=== PATIENT | male | born 1940 | race Caucasian/White ===

== ENCOUNTER 2017-06-16 07:25 | Outpatient (CLI) | payer MEDICARE ==
--- NOTE | 2017-06-16 16:46 | NM ---
WHOLE BODY PLANAR RADIONUCLIDE WBC SCAN: Date: 06/16/17 HISTORY: Patient had L2-L3 laminectomy in [place] in August 2016 and developed osteomyelitis and was given 1 2 weeks of IV antibiotics. Exam is requested to evaluate for infection in the spine or other acute o steomyelitis at other site. RADIOPHARMACEUTICAL: 2.3 mCi technetium-99m HMPAO WBCs injected intravenously and imaged after 2 hours. FINDINGS: There is physiologic activity in the liver, spleen, and GI tract. No abnormal areas of tracer locali zation are seen. IMPRESSION: Normal exam. POS: [facility]
== END 2017-06-16 07:26 | disposition home or self-care (01) ==
LOC: NM 07:25
PROVIDERS: ATTEND Internal Medicine Infectious Disease
DX: M86.18 Other acute osteomyelitis, other site (principal); Z98.890 Other specified postprocedural states
CPT/HCPCS: 78806; A4641; A9521

== ENCOUNTER 2017-06-17 07:54 | Outpatient (CLI) | payer MEDICARE ==
--- NOTE | 2017-06-17 10:22 | MRI ---
LUMBAR SPINE MRI WITH AND WITHOUT CONTRAST: COMPARISON: Reference is made to prior MRI of 02/27/17 as well as white cell scan 06/16/17. CLINICAL HISTORY: Other acute osteomyelitis, other site, back. Abnormal prior MRI, followup. FINDINGS: Redemonstration of marked signal abnormality of the L2 and 3 vertebral segments with associated compr ession deformities and focal kyphosis. There remains a mild degree of interspersed fluid signal with in the irregular disk space as well as associated marrow edema predominantly in an obliquely oriented linear configuration of the L2 and L3 vertebral segments. There is surrounding paravertebral soft t issue edema/enhancement again seen as well as a mild degree of enhancement at the vertebral canal of this level. These findings may be reactive given the abnormal morphology and alignment of the spine. There is no obvious progression of the signal abnormalities. There is a moderate degree of central canal stenosis as a result of the focal kyphosis at the L2-3 level. Prominent bilateral facet degen erative change is present. There is also marrow edema of the posterior elements of L2 and L3, grossl y stable. The remaining lumbar spine levels are grossly stable. Conus medullaris terminates at the L1 level. There is no pathologic enhancement seen along the nerve roots of cauda equina. IMPRESSION: Grossly stable MRI without a significant degree of interval detrimental change of signal alteration o f the L2 and 3 segments. There remains mild interspersed fluid signal within the irregular disk spac e related to the L2 and L3 fracture deformities with associated kyphosis. Surrounding paravertebral soft tissue edema/enhancement as well as a mild degree of enhancement of the vertebral canal is again seen. The primary considerations, particularly in light of absence of typical evolutionary changes for infection, and an intervening negative white cell scan, would indicate reactive marrow edema and disk space fluid related to prior trauma. Alternatively, this could relate to chronic sequelae from an infectious process given the clinical history. Absence of activity on the recent white cell scan indicates absence of an active pyogenic process. Recommend clinical correlation in this regard. As necessary, continued imaging surveillance may be performed. POS: [facility]
[2017-06-17] MEDS ORDERED: Gadobenate Dimeglumine 529 MG/1 ML (20ML VIAL) ONE (17:07)
== END 2017-06-17 07:55 | disposition home or self-care (01) ==
LOC: MRI 07:54
DX: M86.18 Other acute osteomyelitis, other site (principal)
CPT/HCPCS: 72158; 80048; 85025; 85610; 85730; 93005; 93010; A9579

== ENCOUNTER 2017-06-17 09:19 | Outpatient (CLI) | payer MEDICARE ==
--- NOTE | 2017-06-18 07:56 | EKG ---
Test Reason : Blood Pressure : / mmHG Vent. Rate : 055 BPM Atrial Rate : 055 BPM P-R Int : 212 ms QRS Dur : 166 ms QT Int : 462 ms P-R-T Axes : 015 097 017 degrees QTc Int : 441 ms Sinus bradycardia with 1st degree A-V block Right bundle branch block Abnormal ECG When compared with ECG of 08-DEC-2016 16:55, Premature ventricular complexes are no longer Present AR interval has increased Septal infarct is now Present Nonspecific T wave abnormality no longer evident in Lateral leads Confirmed by DARCIE KIRBY, SFermin ([id number]) on 06/18/2017 7:56:36 AM Referred By: ANNABEL Confirmed By:DR. Constance SPRAGUE MD
== END 2017-06-17 09:20 | disposition home or self-care (01) ==
LOC: LABBT 09:19
PROVIDERS: ATTEND Neurological Surgery
DX: Z01.812 Encounter for preprocedural laboratory examination (principal); M47.26 Other spondylosis with radiculopathy, lumbar region; M46.26 Osteomyelitis of vertebra, lumbar region; M46.46 Discitis, unspecified, lumbar region
CPT/HCPCS: 93005; 93010

== ENCOUNTER 2017-06-17 10:00 | Inpatient (IN) | payer MEDICARE ==
--- NOTE | 2017-06-17 12:32 | HP ---
HISTORY OF PRESENT ILLNESS: Mr. Stark is a 76-year-old male who presents with pain in the right L 3 dermatome. He has had this pain since that after his surgery 08/2016 in [place], which was an L4-L 5 laminectomy. Mr. Stark had 2 lumbar spine infection washouts after his surgery and he has been on antibiotic for Enterococcus for about 4 months for postoperative infection with osteomyelitis of t he spine. His surgeon in [place] suggested he could do another operation in a few months; however, t he pain is constant in the right leg and the patient is here for a second opinion on whether he shoul d wait or not. He denies any bowel or bladder incontinence and does not have any pain past his knee on the right. He has had good strength in the lower extremities and his incision looks clean, dry, a nd healing well. He has had a previous lumbar spine surgery at L2-L3 in 2014 in [place]. IMAGES: X-ray upright lateral on CD. Patient has MRI at [facility]. REVIEW OF SYSTEMS: Twelve point review of systems was completed and is otherwise negative unless sta sunita in the above HPI. PAST MEDICAL HISTORY: Irregular heartbeat, sleep apnea, arthritis, spinal stenosis, macular degenera tion. PAST SURGICAL HISTORY: 1. L4-L5 laminectomy in 2016. 2. L2-L3 laminectomy in 2014. 3. Wound wash out x2, lumbar laminectomy in 2016. HOSPITALIZATIONS: Hospitalizations for lumbar infection in 2017. FAMILY HISTORY: Father is , diagnosed with cancer. Mother is , diagnosed with heart disease. Siblings are alive. SOCIAL HISTORY: The patient is nonsmoker, retired banker. He has 2 children. He is . MEDICATIONS: Protonix, amlodipine, Advil, metoprolol, prednisone, hydrocodone, baby aspirin, lisinop ril, CoQ 10, Pressor Vision, baclofen 10 mg tablet 1 tablet with food orally 3 times a day. ALLERGIES: No known drug allergies. PHYSICAL EXAMINATION: HEENT: Normocephalic, atraumatic. Hearing intact. Moist mucous membranes. Trachea is midline. EYES: Pupils are equal and reactive to light. Extraocular muscles are intact. Sclerae is white, no nicteric. PSYCHIATRIC: Normal mood and affect. CARDIOVASCULAR/PULMONARY: No cyanosis or clubbing noted. Intact pedal pulses bilaterally. MUSCULOSKELETAL: Lower extremity, 5/5 strength in bilateral iliopsoas, quadriceps, hamstrings, right tibialis anterior, extensor hallucis longus. Sensory deficit in the L3 dermatome on the right. Ten dianna to palpation in the midline lumbar spine. RESPIRATORY: Even respirations, good effort, all lung hanson sound clear with no wheezing or crackle s. NEUROLOGIC: Cranial nerves II-XII are grossly intact. Speech is fluent. He answers my questions ap propriately. The patient has antalgic gait and station. ASSESSMENT: 1. Lumbar radiculopathy, osteomyelitis of the vertebrae lumbar region. 2. Spondylosis with radiculopathy, lumbar region. IMAGING: MRI shows kyphosis at L2-L3, collapse of right L2-L3 foramen, L2 root between L3 superior e ndplate an L2 pedicle. Canal narrowing enhancement on L2 disk. Recent sed rate is 2. PLAN: Dr. Logan discussed surgery with the patient. Our plan is to decompress the L2 foramen an d canal instrumentation to stabilize. Likely instrumentation will include L4 with L3-4 interbody, le ss likely it might include L2-L3 interbody but the endplate of L3 is worn away enough that it may not be possible. We will take cultures in surgery. Informed consent was given in the indications, risk s, benefits, alternatives, and expected results from surgery. The risks discussed included, but were not limited to bleeding, infection, CSF leak, nerve damage, weakness, incontinence, cauda equina inj ury, arachnoiditis, paralysis, ventilator dependence, wheelchair dependence, loss of vision, hardware misplacement, cardiopulmonary complications of anesthesia or . Long-term complications discuss ed included, but were not limited to degeneration of surrounding disks and future surgery. He unders tands the risk and is willing to proceed.
[2017-06-17 13:37] LABS: PTT 32.2 SEC (22.9-36.1)
[2017-06-17 14:04] LABS: Anion Gap 9 mmol/L (10-20); BUN (Urea Nitrogen) 15 mg/dL (8.4-25.7); Calc. Creatinine Clearance 0 mL/min (70-130); Calcium 9.3 mg/dL (7.8-10.44); Carbon Dioxide 32 mmol/L (23-31); Chloride 103 mmol/L (98-107); Estimated GFR-MDRD Greater than 90
[2017-06-17 14:05] LABS: #Eosinphils 0.1 thou/uL (0.0-0.7); #Lymphocytes 1.6 thou/uL (1.20-3.40); #Monocytes 0.5 thou/uL (0.11-0.59); %Basophils 0.9 % (0.0-1.0); %Eosinophils 3.3 % (0.0-10.0); %Lymphocytes 37.4 % (21.0-51.0); Mean Platelet Volume 9.5 fL (7.4-10.4); Red Blood Cell (RBC) Count 4.57 mill/uL (4.70-6.10); White Blood Cell (WBC) Count 4.4 thou/uL (4.8-10.8)
[2017-06-17 17:06] VITALS: BMI 25.1
[2017-06-22] MEDS ORDERED: CEFAZOLIN/Water 2 GM/20 ML SYRINGE ONE (06:00)
[2017-06-22] MEDS ORDERED: Fentanyl 250 MCG/5 ML VIAL ONE (06:12)
[2017-06-22] MEDS ORDERED: Midazolam HCl 2 mg/2 ml Vial ONE (06:12)
[2017-06-22] MEDS ORDERED: Bupivacaine/Epinephrine 0.25% 30 ML VIAL ONE (06:17)
[2017-06-22] MEDS ORDERED: Bupivacaine PF 0.5% 30 ML VIAL ONE (06:17)
[2017-06-22] MEDS ORDERED: Sodium Chloride 0.9% 20 ML ONE (06:17)
[2017-06-22] MEDS ORDERED: Thrombin 5000 UNITS/5 ML VIAL ONE ×2 (06:17)
[2017-06-22] MEDS ORDERED: Propofol 200 MG/20 ML VIAL ONE (07:08)
[2017-06-22] MEDS ORDERED: Dexamethasone 20 MG/5 ML VIAL ONE (07:08)
[2017-06-22] MEDS ORDERED: ePHEDrine/0.9% NaCl/PF SYRINGE 50 mg/10 ml ONE ×2 (07:08→12:00)
[2017-06-22] MEDS ORDERED: Lidocaine 1% PF 5 ML VIAL ONE (07:08)
[2017-06-22] MEDS ORDERED: Ondansetron HCl/PF 4 MG/2 ML Vial ONE (07:08)
[2017-06-22] MEDS ORDERED: Glycopyrrolate 0.2 MG/ML 5 ML SYRINGE ONE (07:08)
[2017-06-22] MEDS ORDERED: Fentanyl 100 MCG/2 ML VIAL ONE ×3 (09:59→15:06)
[2017-06-22] MEDS ORDERED: Albumin 5% 0 ML ONE (11:47)
[2017-06-22] MEDS ORDERED: Albumin 5% 500 ML ONE (11:52)
[2017-06-22] MEDS ORDERED: HYDROmorphone 2 MG/ML VIAL SLOW IVP PRN (13:19)
[2017-06-22] MEDS ORDERED: Promethazine HCl 25 MG/ML VIAL SLOW IVP PRN (13:19)
[2017-06-22] MEDS ORDERED: Meperidine HCl/PF 25 MG/ML VIAL SLOW IVP PRN (13:19)
[2017-06-22] MEDS ORDERED: Morphine Sulfate 2 MG/ML SYRINGE SLOW IVP PRN (13:19)
[2017-06-22] MEDS ORDERED: tiZANidine HCl 4 MG TAB PO PRN (13:52)
[2017-06-22] MEDS ORDERED: Acetaminophen/Codeine 30-300mg Tablet PO PRN (13:52)
[2017-06-22] MEDS ORDERED: Ondansetron HCl/PF 4 MG/2 ML Vial IVP PRN (13:52)
[2017-06-22] MEDS ORDERED: CEFAZOLIN/Water 2 GM/20 ML SYRINGE SLOW IVP SCH (14:00)
--- NOTE | 2017-06-22 14:12 | OP ---
DATE OF PROCEDURE: 06/22/2017 SURGEON: Janae Logan M.D. PRESS TENDER INCENDIARY GRENADE: Gage Bright PA-C PREOPERATIVE INDICATION: Treat pain, prevent further neurological deterioration. PREOPERATIVE DIAGNOSES: Prior lumbar surgery, prior postoperative diskitis osteomyelitis, spinal def ormity at L2-3 with severe foraminal stenosis and L2 radiculopathy, lumbar stenosis. OPERATIVE PROCEDURES: Left decompressive laminectomy, wide foraminotomy L2-3 bilateral, posterolater al arthrodesis L2-L3, L3-L4, pedicle screw and jean claude instrumentation, L2, L3 and L4, transforaminal lum bar interbody arthrodesis L3-L4, multiple cultures, operative microscope. PREOPERATIVE MEDICATIONS: 2 grams IV. DRAIN TYPE: 10 Niuean Igor. OPERATIVE DICTATION: The patient was brought to the operating room. General endotracheal anesthesia was induced. The patient was positioned prone on the operating table with his chest and hips suppor sunita by the appropriate attachments for the Avtar frame. A lateral fluoro radiograph confirmed the previous incision would give us access to the L2-3 and 4 segments of the lumbar spine. The lumbar sk in was sterilely prepped and draped. We reopened his previous incision with a 10 blade knife. We co ntrolled bleeding with bipolar and monopolar cautery. We used monopolar cautery to dissect through t he subcutaneous tissue to the thoracodorsal fascia. We incised the fascia in the midline and reflect ed the paraspinal muscles and postoperative scar tissue off the spinous process and lamina of L2, L3, and L4. Self-retaining retractors were placed. A lateral fluoro radiograph confirmed the levels up on which we were operating. We carried our dissection over the facet joints at L2-L3 and L1-2 to yanet ntify the transverse processes of L2 and L3. In a similar fashion, we dissected the L3-4 facets to t he transverse processes of L4 bilaterally. We irrigated copiously with bacitracin irrigation. We us ed an Adson rongeur to remove the remainder of the spinous process of L2, L3, and superior portion of L4. This was bone we used for deem for autograft. It was cleaned of its soft tissue attachments, m orselized and added to demineralized bone matrix as our fusion substrate. The rest of the bone inclu ded lamina and pars interarticularis was thrown out due to previous infection. After the spinous pro cesses were removed, we identified the inferior margin of the remainder of the lamina of L3 and L2 an d using Kerrison rongeur to fashion a laminectomy. We widened our laminectomy defect by carefully di ssecting scar tissue off the lateral confines of the spinal canal. We widened our foraminotomy until we were even with the pedicles of L2, L3, and L4. We performed foraminotomies over the L2, L3 and L 4 nerve roots. The L2 nerve root especially on the left side was compressed between the pedicle of L 2 and the vertebral body of L3. We brought the operating microscope into the field. Under microscopic magnification using microsurgical techniques, we gently decompressed the L2 nerve r oot circumferentially on the right side. This was done by flattening the vertebral body with a high- speed drill and cheri bit. We drilled off the superior portion of the pedicle at L3 on the right s yanet as well, we generated adequate room around the L2 nerve root for a Florentino ball probe to pass thro ugh the foramen without impingement. In a similar fashion, we decompressed the left L3 and L2 nerve root. We freed scar tissue around the L3 nerve roots. We passed the Florentino ball probe through the l ateral recess and out over the L3 and L4 nerve roots and these were all well decompressed. The decom pression was secured, we turned our attention to arthrodesis. The operative microscope was taken out of field. We removed the facet joint at L3-L4 on the right si de and through the facetectomy corridor, we accessed the intervertebral space. We incised the disk s pace and removed disk contents using curettes and rongeurs. We prepared the endplates for grafting w ith curets and measured the height of the interspace to 12 mm with the bone rasp. A 12 mm PEEK graft was loaded with demineralized bone matrix and morselized autograft and advanced into the interspaces under radiographic guidance to the appropriate depth. We then turned our attention to pedicle screw instrumentation. Using bony anatomic landmarks, palpation of the medial portion of the pedicles, and a lateral fluoro radiograph as a guide, we chose entry points for L2, L3 and L4 pedicle screws. Because of the wearin g away of the L3 vertebral body, those pedicle screws found to be shorter. Therefore, we used fixati on to all the way at L4 and we performed a TLIF at the L3-4 interspace. We drilled our entry points and used the bone awl to project through the pedicles into the vertebral bodies. We tapped each traj ectory. We probed the trajectories and found them completely encased in bone. We placed 6.5 mm diam eter screws at L2, L3 and L4 bilaterally. A 360 degree image set was generated by the isocenter C-ar m confirming adequate position of all our pedicle screws. We irrigated copiously with bacitracin irr igation. We decorticated the transverse processes of L2, L3, and L4 bilaterally. We placed rods in the screw heads and tightened caps over the rods. We used a qkticu-tylkrtv-mdwyns mechanism to ensur e adequate tightness. Overall, the decorticated bone, we left demineralized bone matrix and morseliz ed autograft in the posterolateral recess as our fusion substrate. We controlled bleeding with bipol ar cautery. We tunneled a drain inferiorly through a separate stab incision. We applied the vancomy millie powder into the wound. We closed the wound in anatomic layers and applied a sterile dressing. T his was a clean case and no contamination.
[2017-06-22] MEDS ORDERED: Gabapentin 300 MG CAP PO SCH (14:15)
[2017-06-22] MEDS ORDERED: Morphine 4 MG/ML VIAL ONE ×2 (14:43→16:36)
[2017-06-22 15:31] LABS: Troponin I Less than 0.010 ng/mL (< 0.028)
[2017-06-22 15:42] LABS: Oxyhemoglobin 97.9 % (94.0-97.0); Sodium 141 mmol/L (135-148)
[2017-06-22 15:46] LABS: Mode OR ABG; Vent YES
[2017-06-22] MEDS: Propafenone HCl 150 MG TAB PO SCH ×2 (19:58→20:42)
[2017-06-22] MEDS: Sodium Chloride 0.9% 1,000 ML IV SCH (20:41)
[2017-06-22] MEDS: CEFAZOLIN/Water 2 GM/20 ML SYRINGE SLOW IVP SCH (20:42)
[2017-06-22] MEDS: Gabapentin 300 MG CAP PO SCH (20:44)
--- NOTE | 2017-06-22 21:40 | CON ---
DATE OF ADMISSION: 06/22/2017 DATE OF CONSULTATION: 06/22/2017 INDICATION FOR CONSULTATION: A 77-year-old patient with episodes of right bundle branch block, secon d degree heart block type 2 intermittently during surgery and also short run of atrial fibrillation a ccording to the anesthesiologist. We were asked to see him due to the abnormal EKG findings. HISTORY OF PRESENT ILLNESS: This is a very pleasant 77-year-old gentleman who underwent neurosurgery today with laminectomy. This is his third attempt of laminectomy. He has had some problems in the past starting back in 2014. He has had a laminectomy in August of this year also, he developed some type of infection earlier, this has been trying to clear this up, but he presented today to clean it out and have further evaluation and surgery. During the surgical procedure, he was noted prior to t he procedure to have a right bundle branch block, but during the procedure, he had episodes of second degree heart block type 2 just for few beats. He also had some nonspecific changes with his right b undle branch block, which could be just due to the basic right bundle branch block. He has had a his tory of right bundle branch block in the past and also has history of atrial fibrillation. He has be en on Eliquis for at least a couple of years. It sounds like this had been held for at least a week ago for the anticipated surgery for today. He denied any chest pain or shortness of breath. He rece ntly has been in a wheelchair due to the severe back pain and the issues associated with the previous laminectomy. His prior echocardiogram showed an ejection fraction of 55% with a moderate aortic addison ve regurgitation. The inferior wall shows some hypokinesis. He has had no other significant complai nts as far as we know. He has no history of coronary artery disease. PAST MEDICAL HISTORY: Significant for the laminectomy. He has had an Enterococcus infection. He lama s bilateral cataract surgery, left hand surgery. 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 He has had a prostatectomy, skin cancer. SOCIAL HISTORY: He is . He has children who are alive and well. He has no tobacco abuse. N o alcohol use. He is a retired banker. FAMILY HISTORY: Positive for coronary artery disease in his mother who from coronary artery dis ease or heart disease. ALLERGIES: None. MEDICATIONS AT HOME: Included Eliquis, amlodipine, Neurontin, [place], lisinopril, Toprol-XL, multivit amins, propafenone, vitamins and CoQ10. REVIEW OF SYSTEMS: A 12-point review of systems relatively unremarkable. He has been relatively asy mptomatic from a cardiac standpoint. He has been pretty much wheelchair bound. He denied any chest pain or shortness of breath. His 12-point review of systems, he denied any new HEENT complaints. He did have some cataract surgery recently and has been doing relatively well from that. He had no pul monary complaints such as asthma, emphysema or bronchitis. No significant urinary complaints, but he did have some GI complaints. He has had diarrhea for quite some time. He is uncertain if whether t his is associated with some of the antibiotics he has been taken, but apparently he has had evaluatio n and there has been no significant infectious process noted, but he was informed that he may need to undergo further stool evaluation. Otherwise, a 12-point review of systems is unremarkable except wh at was noted in the history of present illness. PHYSICAL EXAMINATION: GENERAL: Reveals a well-developed, well-nourished gentleman, who is in no acute distress at this [facility]. He is alert and oriented. VITAL SIGNS: His blood pressure is in the 120s systolically and diastolics in the 70s, heart rates i n the 50s to 60s, which shows a sinus rhythm with right bundle branch block. He is afebrile. HEENT: Shows the head to be normocephalic and atraumatic. NECK: Carotid pulses are present. I did not hear any bruits. There is no JVD. The thyroid did not appear to be enlarged. His neck was soft. CHEST: Clear to auscultation without rales, rhonchi or wheezing. CARDIOVASCULAR: Exam reveals a regular rate and rhythm with occasional ectopy. There are no signifi cant murmurs, heaves, thrills, bruits or rubs noted. ABDOMEN: Soft and nontender with positive bowel sounds. No organomegaly or masses are noted. Femor al pulses are present. EXTREMITIES: Showed no clubbing, cyanosis or edema. Pedal pulses are also present, but somewhat dec reased. The popliteal pulses are normal. BACK: He has a surgical dressing over the lower back. NEUROLOGIC: He appears to be stable otherwise. SKIN: Warm and dry. IMAGING: His EKG shows a right bundle branch block with no acute changes. He does have also left po sterior fascicular block. Review of the rhythm strips during the anesthesia did show episodes of the second degree heart block type 2. IMPRESSION AND PLAN: 1. 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 The episodes of the bradycardia and the second degree heart bl ock during the surgery will need to be observed. We will watch him very closely on telemetry. Event ually, this patient most likely will need to undergo a pacemaker insertion, but I suspect this will n ot be necessary at this time. We will continue to follow him very closely. 2. History of atrial fibrillation. He had been on Eliquis in the past. This was stopped about a we ek ago. He supposedly had one episode also of atrial fibrillation during the procedure, so he will n eed to be watched very carefully for atrial fibrillation recurrence. If he has any significant atria l fibrillation, then we will not be able to anticoagulate him after his neurological surgery. We val l need to observe very closely at least to monitor the heart rate and control this. 3. Slight elevation in the cardiac enzyme with a CPK-MB, which most likely is due to the surgical pr ocedure because the troponin I has remained negative. 4. Hypertension. This remains under good control at this time. We will continue to follow the maxx ent with you. He is also on propafenone for the atrial fibrillation. I would continue this medicati on at this time. We will be more than happy to continue to follow the patient with you, but at this time from a cardiac standpoint, I believe he is stable.
[2017-06-22] MEDS: Morphine 4 MG/ML VIAL SLOW IVP PRN (22:01)
[2017-06-23] MEDS: Morphine PF 1 MG/ML SYR IVP PRN ×2 (01:49→05:38)
[2017-06-23] MEDS: CEFAZOLIN/Water 2 GM/20 ML SYRINGE SLOW IVP SCH ×3 (03:22→20:21)
--- NOTE | 2017-06-23 07:27 | PRG ---
DATE OF SERVICE: 06/23/2017 I saw Mr. Stark in his telemetry bed this morning. He was placed on telemetry due to new onset he art block. He tells me he has had a heart block in the past. In the remote past, he had multiple ro unds of abnormal rhythm and was told by wood craftsman some time ago that he had some heart block. Thi s is not a recent finding, however. Dr. Brewer is his primary wood craftsman. The Cardiology team florian bahena at [facility] have seen him and I am appreciative of their suppo rt on the case. Mr. Stark is without chest pain this morning. The pain that was in his legs is gone. His back is quite sore from surgery. On examination, I do not find any new neurological deficits. His drain ou tput has not been recorded electronically, but he tells me the drain was emptied 3 times and each dante e there is less volume in it. My plan today is to fit him with a brace. I reiterated my concern about his low bone density and he needs to wear the brace tightly when he is up and around. We will get a bone growth stimulator for h im. Physical therapy will start working in the hospital. We will watch the drain output and hopeful ly if it tapers off well enough that it can be removed today or tomorrow.
--- NOTE | 2017-06-23 07:38 | PRG ---
DATE OF SERVICE: 06/23/2017 Mr. Stark is status post 1 day out from a redo laminectomy and transforaminal interbody fusion at L2-L4 and pediculectomy During surgery yesterday he had a second degree heart block for a short axel od of time postoperatively. I consulted Dr. Brewer and updated him on this event. He said he had a followup appointment in 2 months and if he did not think that he needed to move it up for his appoi ntment to be sooner. Dr. Pino, customer experience manager at [facility] also saw him and evaluated the rh ythm strips from surgery. Overnight his drain output from the lumbar drain was 140 mL. It is starti ng to taper off some. His hemoglobin yesterday throughout the night dropped from 11.4 to 9.2. We wi ll continue to watch this closely to make sure that he does have become symptomatic. His pain is wel l tolerated with pain medication. Today we will have him up and ambulating with physical therapy as much as possible. His incision looks clean, dry, and intact this morning. There is a small amount o f dried blood on the 4 x 4s. The pain in his leg is starting to resolve on the right side. He is ab le to tolerate regular diet since he has been in the hospital postoperatively. We will also order a bone stimulator for him as the bone quality post-infection of the lumbar spine was decreased. If there are any further questions, please feel free to contact Neurosurgery.
[2017-06-23] MEDS: Multivit, Therapeutic 1 TAB PO SCH (08:13)
[2017-06-23] MEDS: Gabapentin 300 MG CAP PO SCH ×3 (08:14→20:19)
[2017-06-23] MEDS: Senokot 8.6 MG TAB PO SCH (08:15)
[2017-06-23] MEDS: Lactinex Tablet PO SCH (08:15)
[2017-06-23] MEDS: Propafenone HCl 150 MG TAB PO SCH ×3 (08:15→20:20)
[2017-06-23] MEDS: Amlodipine 5 MG TAB PO SCH (08:16)
[2017-06-23] MEDS: Morphine 4 MG/ML VIAL SLOW IVP PRN ×2 (08:16→12:02)
[2017-06-23] MEDS: HYDROcodone/Acetaminophen 7.5/325 mg Tablet PO SCH (08:18)
[2017-06-23] MEDS: Sodium Chloride 0.9% 1,000 ML IV SCH ×2 (09:40→23:22)
--- NOTE | 2017-06-23 14:57 | PDOC.CTH ---
<Adali Steven - Last Filed: 06/23/17 14:50> Cardiology Progress Note - Subjective The pt seen and examined. No overnight events. No cardiac complaints. He walked with PT today from his bed to hallway without any cardiac complaints - Objective Vital Signs Temp Pulse Pulse Pulse Resp BP BP 06/23/17 13:06 81 91 137/65 06/23/17 11:12 99.6 F 78 20 06/23/17 08:22 98.6 F 72 16 06/23/17 08:16 72 120/60 06/23/17 08:10 98.6 F 72 16 06/23/17 03:27 99.2 F 70 18 BP BP BP Pulse Ox 06/23/17 13:06 130/60 131/60 06/23/17 11:12 129/58 L 94 L 06/23/17 08:22 92 L 06/23/17 08:16 06/23/17 08:10 126/60 92 L 06/23/17 03:27 124/60 94 L Weight 175 lb 06/22/17 06/23/17 06/24/17 06:59 06:59 06:59 Intake Total 870 Output Total 490 Balance 380 - Physical Examination General/Neuro: alert & oriented x3 Neck: no JVD present Lungs: CTA Heart: RRR Abdomen: soft Extremities: other: (No edemas) - Telemetry Telemetry Rhythm: SR with PVC HR 84 - Labs Result Diagrams: 06/23/17 04:19 06/17/17 11:45 Troponin/CKMB CK-MB (CK-2) 9.2 ng/mL (0-6.6) H* 06/22/17 15:03 Troponin I Less than 0.010 ng/mL (< 0.028) 06/22/17 15:03 - Assessment/Plan 1. s/p 2nd AVB type 2 - No episode of abnormal arrhythmias since he was transferred to Tele floor. Cont. monitor on tele 2. Hx of Afib - Remains SR with PVCs; Holding Eliquis due to lower Hgb, 9.2, today from 11.4 yesterday 3. abnormal CKMB - possible from surgical procedure; cont. monitor 4. HTN - stable; cont. monitor 5. SA - on home Cpap MAR reviewed Review of Systems - Review of Systems Constitutional: reports: no symptoms reported EENTM: reports: no symptoms reported Respiratory: reports: no symptoms reported Cardiac (ROS): reports: no symptoms reported ABD/GI: reports: no symptoms reported Musculoskeletal: reports: no symptoms reported <Krupa Pino - Last Filed: 06/23/17 18:14> Cardiology Progress Note - Objective Vital Signs Temp Pulse Pulse Pulse Resp BP BP 06/23/17 15:47 100.5 F H 85 20 06/23/17 13:06 81 91 137/65 06/23/17 13:05 81 91 137/65 06/23/17 11:12 99.6 F 78 20 06/23/17 08:22 98.6 F 72 16 06/23/17 08:16 72 120/60 06/23/17 08:10 98.6 F 72 16 BP BP BP Pulse Ox Pulse Ox 06/23/17 15:47 137/65 92 L 06/23/17 13:06 130/60 131/60 06/23/17 13:05 131/60 131/60 95 06/23/17 11:12 129/58 L 94 L 06/23/17 08:22 92 L 06/23/17 08:16 06/23/17 08:10 126/60 92 L Weight 175 lb 06/22/17 06/23/17 06/24/17 06:59 06:59 06:59 Intake Total 870 1400 Output Total 490 575 Balance 380 825 - Labs Result Diagrams: 06/23/17 04:19 06/17/17 11:45 Troponin/CKMB CK-MB (CK-2) 9.2 ng/mL (0-6.6) H* 06/22/17 15:03 Troponin I Less than 0.010 ng/mL (< 0.028) 06/22/17 15:03 - Assessment/Plan Pt. seen and eval. No arrhythmias or AV blocks. He has maintained NSR. I agree with the A/P by the TAR DISTILLATION SUPERVISOR. Cardiac status is stable. Chest clear, RRR. No edema.
[2017-06-23] MEDS ORDERED: Acetaminophen 325 MG TAB PO SCH (17:15)
--- NOTE | 2017-06-23 17:39 | CON ---
DATE OF CONSULTATION: 06/23/2017 REASON FOR FOLLOWUP: Previous lumbosacral spine infection with instrumentation at this time for radha cornejo of radiculopathy. HISTORY OF PRESENT ILLNESS: A 77-year-old who has a history of atrial fibrillation, degenerative renita nt disease and lumbosacral spine pain with radiculopathy with previous laminectomy in August at [facility], also with history of macular degeneration. Following the laminectomy in [facility], he sustained a postop infection secondary to Enterococcus faecalis. He had an I&D and oral anti microbial therapy and had required a second I and D later in September. At this time, he received IV antimicrobial therapy for 3 months. The organism in the second I and D also identified as Enterococc us faecalis. After that, patient moved over to this area because of worsening radiculopathy of right lower extremity, he was evaluated by Dr. Logan and carried out debridement and instrumentation j ust, I believe, yesterday. The patient now has experienced resolution of the radiculopathic symptoms . No headaches, visual symptoms, sore throat, odynophagia, dysphagia, no cough or sputum production or chest pain, no abdominal pain or diarrhea, genitourinary symptoms. No other neurological symptoms . PAST MEDICAL HISTORY: Atrial fibrillation, sleep apnea, macular degeneration, degenerative joint dis ease, and lumbosacral spine. PAST SURGICAL HISTORY: Laminectomy in 2014 and 2016, infection of the post-laminectomy wound in 2016 and a repeat washout few weeks later, protracted IV antimicrobial therapy for Enterococcus faecalis infection. FAMILY HISTORY: Noncontributory. 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 CURRENT MEDICATIONS: Acetaminophen, hydrocodone, Norvasc, cefazolin, gabapentin, lisinopril, tizanid ine. PHYSICAL EXAMINATION: VITAL SIGNS: T-max 99.6, blood pressure 129/58, pulse 78. SKIN: Shows a peripheral IV access. No Acevedo catheter. No other areas of skin breakdown except for the lumbosacral surgical site. No lymphadenopathy. HEENT: Noncontributory. NECK: Supple, no jugular vein distention. LUNGS: With symmetric clear breath sounds. HEART: S1, S2, regular rate. No S3 or S4. ABDOMEN: Soft, nondistended or tender. No ascites. No bladder distention. EXTREMITIES: No joint inflammatory activity. NEUROLOGIC: Awake, alert, oriented. LABORATORY AND X-RAY FINDINGS: We have 5 samples from the lumbosacral spine area, pending cultures. The first sample with no wbcs or bacteria. The second sample with rare wbcs seen. The third sample with many wbcs seen and a few gram negative rods identified. The fourth sample, there are no organi sms seen, some wbcs seen in the last fifth sample with rare wbcs seen. The white cell count 4.4, hem oglobin 13, platelets 176. Troponin less than 0.01. IMAGING STUDIES: We have WBC label study from 06/16/2017 which was normal. There is an MRI from with mild interspersed fluid signal within the irregular disk space, L2-3 fracture deformitie s associated with kyphosis, some edema and enhancement in the paravertebral soft tissue and mild enha ncement in vertebral canal, felt to be reactive in nature versus sequelae from chronic infection. ASSESSMENT: 1. Prior lumbosacral spine laminectomy with postoperative infectious complications treated for a pro tracted period of time with oral and then IV antimicrobial therapy. Both instances with Enterococcus faecalis retrieved. 2. Worsening radiculopathy, right lower extremity status post debridement and instrumentation. DISCUSSION: One of the samples from the tissue shows a few gram negative rods and many wbcs seen. I have to discuss with Dr. Logan to see if this is correlated with any particular side in his area of interest. The interpretation of this finding is fraught with some difficulty, could represent re sidual infection from prior surgery or more likely a false positive versus true secondary infection w ith a gram negative rods. We will wait for the final results of the cultures. If the cultures are n egative, then I would call it absence of infection as the more likely scenario here. If the cultures turn positive, he would require PICC line placement and protracted IV antimicrobial therapy again.
[2017-06-23] MEDS: Lisinopril 20 MG TAB PO SCH (20:20)
[2017-06-23] MEDS: Acetaminophen 325 MG TAB PO PRN (21:44)
[2017-06-24] MEDS: CEFAZOLIN/Water 2 GM/20 ML SYRINGE SLOW IVP SCH ×3 (03:15→19:36)
[2017-06-24] MEDS: Acetaminophen 325 MG TAB PO PRN (05:00)
--- NOTE | 2017-06-24 07:24 | PRG ---
DATE OF SERVICE: 06/24/2017 Mr. Stark is 2 days out from decompression fusion and stabilization of the lumbar spine. He had a postop fever yesterday about 24 hours after his operation. The leg and hip pain that he had before surgery is gone. He was up and out of bed and walking in the hallway once yesterday. Mr. Stark's drain is still in. Thus far, Ms. Stark's vitals are stable, he has defervesced a bit and his fever is down. His othe r vitals looks stable. The drain output has been 120 mL over the last 12 hours. His neurological ex amination of the lower extremities is good. I am going to send urine for a urinalysis and urine cult ure. We will do an ultrasound of the lower extremities. I will ask PT to mobilize him and I reinfor lamar the use of incentive spirometry. I think all these measures will help with his fever. For disposition, it will depend on Mr. Stark's safety for his activities of daily living. If he n eeds extra help, then a short stay at inpatient rehabilitation facility seems reasonable.
[2017-06-24] MEDS: Multivit, Therapeutic 1 TAB PO SCH (08:18)
[2017-06-24] MEDS: Gabapentin 300 MG CAP PO SCH ×3 (08:18→20:56)
[2017-06-24] MEDS: Amlodipine 5 MG TAB PO SCH (08:19)
[2017-06-24] MEDS: Lactinex Tablet PO SCH (08:19)
[2017-06-24] MEDS: Senokot 8.6 MG TAB PO SCH (08:19)
[2017-06-24] MEDS: Propafenone HCl 150 MG TAB PO SCH ×3 (08:19→20:57)
[2017-06-24] MEDS: Morphine 4 MG/ML VIAL SLOW IVP PRN (08:20)
[2017-06-24] MEDS: HYDROcodone/Acetaminophen 7.5/325 mg Tablet PO SCH (09:28)
[2017-06-24 09:47] LABS: Bilirubin Negative (Negative); Blood, Urine Negative (Negative); Glucose, Urine (Dipstick) Negative (Negative); Ketone, Urine Negative (Negative); Nitrite Negative (Negative); Protein, Urine (Dipstick) Negative (Neg-Trace); Urobilinogen 0.2 mg/dL (0.2-1.0)
[2017-06-24 09:52] LABS: Bacteria/HPF None Seen HPF (None Seen); Hyaline Casts/LPF 0-3 HYALINE CAST LPF (0-3 Hyaline); RBC/HPF 0-3 HPF (0-3); Squamous Epithelial None Seen HPF (0-3); WBC/HPF None Seen HPF (0-3)
--- NOTE | 2017-06-24 09:58 | ULT ---
RIGHT LOWER EXTREMITY VENOUS DUPLEX ULTRASOUND INCLUDING COLOR AND SPECTRAL DOPPLER IMAGING: HISTORY: A 77-year-old male with immobility and fever. Examination performed from groin to ankle including visualized greater saphenous, common femoral, sup erficial femoral, profunda femoral, popliteal, trifurcation, and posterior tibial vein regions. Ther e is phasic flow at all levels with normal compressibility and normal augmentation. No intraluminal thrombus. IMPRESSION: No evidence for deep venous thrombosis. Minimal superficial subcutaneous fat stranding in both lower legs, evidence for minimal subcutaneous edema. POS: ZAKI
--- NOTE | 2017-06-24 10:37 | PDOC.CTH ---
<Adali Steven - Last Filed: 06/24/17 10:34> Cardiology Progress Note - Subjective The pt seen and examined. No overnight events. No cardiac complaints. He has not walked today. - Objective Vital Signs Temp Pulse Resp BP BP Pulse Ox 06/24/17 08:35 98.8 F 64 16 133/71 95 06/24/17 08:19 64 133/71 06/24/17 07:22 98.4 F 59 L 18 06/24/17 03:15 98.4 F 59 L 18 145/70 H 96 06/24/17 00:00 98.7 F 65 18 116/56 L 95 Weight 175 lb 6 oz 06/23/17 06/24/17 06/25/17 06:59 06:59 06:59 Intake Total 870 2585 Output Total 490 1665 Balance 380 920 - Physical Examination General/Neuro: alert & oriented x3 Neck: no JVD present Lungs: CTA Heart: RRR Abdomen: soft Extremities: other: (No edemas) - Telemetry Telemetry Rhythm: SR with RBBB HR 63 - Labs Result Diagrams: 06/23/17 04:19 06/17/17 11:45 Troponin/CKMB CK-MB (CK-2) 9.2 ng/mL (0-6.6) H* 06/22/17 15:03 Troponin I Less than 0.010 ng/mL (< 0.028) 06/22/17 15:03 - Assessment/Plan 1. s/p 2nd AVB type 2 - No episode of abnormal arrhythmias since he was transferred to Tele floor. Cont. monitor on tele 2. Hx of Afib - Remains SR with PVCs; Holding Eliquis due to s/p Laminectomy 3. abnormal CKMB - possible from surgical procedure; cont. monitor 4. HTN - stable; cont. monitor 5. SA - on home Cpap MAR reviewed *The pt will f/u with Dr Baker, [place] for his Cardiac related management. Review of Systems - Review of Systems Constitutional: reports: no symptoms reported EENTM: reports: no symptoms reported Respiratory: reports: no symptoms reported Cardiac (ROS): reports: no symptoms reported ABD/GI: reports: no symptoms reported : reports: no symptoms reported Musculoskeletal: reports: no symptoms reported <Krupa Pino - Last Filed: 06/24/17 16:50> Cardiology Progress Note - Objective Vital Signs Temp Pulse Pulse Pulse Resp BP BP 06/24/17 13:49 73 77 140/65 06/24/17 10:32 98.2 F 60 16 06/24/17 08:35 98.8 F 64 16 06/24/17 08:19 64 133/71 06/24/17 07:22 98.4 F 59 L 18 BP BP Pulse Ox 06/24/17 13:49 130/61 06/24/17 10:32 154/70 H 99 06/24/17 08:35 133/71 95 06/24/17 08:19 06/24/17 07:22 Weight 175 lb 6 oz 06/23/17 06/24/17 06/25/17 06:59 06:59 06:59 Intake Total 870 2585 Output Total 490 1665 Balance 380 920 - Labs Result Diagrams: 06/23/17 04:19 06/17/17 11:45 Troponin/CKMB CK-MB (CK-2) 9.2 ng/mL (0-6.6) H* 06/22/17 15:03 Troponin I Less than 0.010 ng/mL (< 0.028) 06/22/17 15:03 - Assessment/Plan Pt. seen and eval. by me. I agree with the A/p by the REHEATER HELPER. The cardiac status is stable. I will sign off. he can follow up with me or Dr. Brewer, his choice. i val sign off. thank you.
[2017-06-24] MEDS: Acetaminophen/Codeine 30-300mg Tablet PO PRN ×3 (11:51→21:01)
--- NOTE | 2017-06-24 12:33 | PRG ---
DATE OF SERVICE: 06/24/2017 SUBJECTIVE: Mr. Stark is 2 days out from a lumbar spinal fusion. Overnight, he had a little bit of a fever, which he received Tylenol for. There have been no acute events overnight. His vital sig ns have been stable. The radicular symptoms that he has been having in his legs before the operation have resolved and he has been walking. Mr. Stark's drain is still in place and the drain output is approximately 120 mL. There are no new neurologic findings on exam. If Mr. Stark is doing well with physical therapy, he can either be sent home or if he would like t o have a few days at inpatient rehab that is also an option. I talked to him about the importance of using spirometer postoperatively. This morning, he had a venogram bilateral lower extremities that showed no evidence of deep vein thrombosis. If there are any further questions, please feel free to contact Neurosurgery.
[2017-06-24] MEDS: Sodium Chloride 0.9% 1,000 ML IV SCH (16:03)
[2017-06-24] MEDS: Lisinopril 20 MG TAB PO SCH (20:55)
[2017-06-25] MEDS: Acetaminophen/Codeine 30-300mg Tablet PO PRN ×3 (04:17→11:55)
[2017-06-25] MEDS: CEFAZOLIN/Water 2 GM/20 ML SYRINGE SLOW IVP SCH ×2 (04:20→11:33)
[2017-06-25] MEDS: Sodium Chloride 0.9% 1,000 ML IV SCH ×2 (04:28→08:15)
[2017-06-25] MEDS: Amlodipine 5 MG TAB PO SCH (08:18)
[2017-06-25] MEDS: Gabapentin 300 MG CAP PO SCH ×2 (08:18→11:33)
[2017-06-25] MEDS: Propafenone HCl 150 MG TAB PO SCH (08:19)
[2017-06-25] MEDS: Lactinex Tablet PO SCH (08:19)
[2017-06-25] MEDS: Multivit, Therapeutic 1 TAB PO SCH (08:19)
[2017-06-25] MEDS: HYDROcodone/Acetaminophen 7.5/325 mg Tablet PO SCH (08:19)
[2017-06-25] MEDS: Senokot 8.6 MG TAB PO SCH (08:22)
--- NOTE | 2017-06-25 10:51 | PRG ---
DATE OF SERVICE: 06/25/2017 Neurosurgery progress note SUBJECTIVE: Mr. Stark is 3 days out from decompression fusion in lumbar spine for kyphotic deform ity related to his previous surgery and sequelae from that operation, which includes diskitis and ost eomyelitis. Ms. Stark has done well since this surgery was done. His cultures have remained nega tive. His vitals are stable. His drain output is tapering below our threshold for removal. Dr. Wallace is okay with discharge. We will make arrangements for him to go home today if he is safe f or his activities of daily living. If he is unsafe, inpatient rehabilitation stay might be worthwhil e.
[2017-06-25 11:31] VITALS: TEMP 98.2
[2017-06-25 13:14] VITALS: BP 150/65
--- NOTE | 2017-06-28 08:26 | EKG ---
Test Reason : POST OP Blood Pressure : / mmHG Vent. Rate : 089 BPM Atrial Rate : 089 BPM P-R Int : 194 ms QRS Dur : 158 ms QT Int : 456 ms P-R-T Axes : 058 120 006 degrees QTc Int : 554 ms Normal sinus rhythm Right bundle branch block Left posterior fascicular block Bifascicular block Abnormal ECG When compared with ECG of 17-JUN-2017 10:23, Significant changes have occurred Confirmed by Isael GRIGGS ([id number]) on 06/28/2017 8:25:56 AM Referred By: ANA Confirmed By:Isael GRIGGS
--- NOTE | 2017-06-29 09:12 | DIS ---
ADMISSION DIAGNOSES: Prior lumbar surgery, prior postoperative diskitis, osteomyelitis, spinal defor mity at L2-L3 with severe foraminal stenosis at L2 radiculopathy, lumbar stenosis. DISCHARGE DIAGNOSES: Prior lumbar surgery, prior postoperative diskitis, osteomyelitis, spinal defor mity at L2-L3 with severe foraminal stenosis at L2 radiculopathy, lumbar stenosis. DISCHARGE CONDITION: The patient is stable, able to tolerate a regular diet and ambulate with no pro blems. All images were taken intraoperatively. A venogram was taken that shows no DVT bilateral lower extre mities. PROCEDURES: Left decompressive laminectomy, wide foraminotomy at L2-3, bilateral posterolateral arth rodesis at L2-L4, pedicle screw and jean claude instrumentation at L2-L3 and L3-L4. Transforaminal lumbar in terbody arthrodesis at L3-L4. Multiple cultures, operative microscope. HISTORY OF PRESENT ILLNESS: Mr. Stark has had a prior lumbar surgery, which required washout and he suffered from osteomyelitis and spinal deformity thereafter. He has been cleared by Infectious Meka huerta and has been taking antibiotics. He continued to have pain in his legs because of the deformit y caused by the osteomyelitis. We were able to decompress around the nerve and stabilize that portio n of his lumbar spine. Because of the pain in his legs he opted for a spinal and deformity of the vertebral bodies from the osteomyelitis, he opted for neurosurgical intervention after nonsurgical intervention and lifestyle m odifications did not cause permanent relief. HOSPITAL COURSE: During surgery, he had abnormal heart rhythm in which he went into and AV block typ e 2. Dr. Pino, Cardiology, and his original normal lube technician, Dr. Brewer, was consulted and the y felt that he was stable to go home. There were no other acute events during his hospital stay. DISCHARGE PHYSICAL EXAMINATION: HEENT: Normocephalic, atraumatic. Hearing intact. Moist mucous membranes. Trachea is midline. EYES: Pupils are equal and reactive to light. Extraocular muscles are intact. Sclerae is white, no nicteric. CARDIOVASCULAR: The patient has regular rate and rhythm, no distal cyanosis or clubbing noted. RESPIRATORY: The patient has bilateral symmetric chest rise, appears to have no shortness of breath. NEUROLOGIC: Cranial nerves II-XII are grossly intact. Speech is fluent. He answers my questions ap propriately. The pain in his legs has started to resolve. ACTIVITY: The patient can have regular activity with restrictions of lifting more than 15 pounds, he is to wear an LSO orthotic while sitting upright and ambulating. DIET: The patient can have a regular diet on discharge. MEDICATIONS: Home medications. Please see hospital home medication reconciliation list.
== END 2017-06-25 12:50 | disposition home or self-care (01) | DRG 457 ==
LOC: SURG A 06-22 05:34 → 2NO 06-22 17:26
PROVIDERS: ADMIT Neurological Surgery; ATTEND Neurological Surgery
PROC: 0SG10AJ Fusion of 2 or more Lumbar Vertebral Joints with Interbody Fusion Device, Posterior Approach, Anterior Column, Open Approach (ICD-10-PCS; principal; 2017-06-22)
PROC: 01NB0ZZ Release Lumbar Nerve, Open Approach (ICD-10-PCS; 2017-06-22)
PROC: 0SB20ZZ Excision of Lumbar Vertebral Disc, Open Approach (ICD-10-PCS; 2017-06-22)
PROC: 30233N1 Transfusion of Nonautologous Red Blood Cells into Peripheral Vein, Percutaneous Approach (ICD-10-PCS; 2017-06-22)
DX: M46.26 Osteomyelitis of vertebra, lumbar region (principal); M48.56XA Collapsed vertebra, not elsewhere classified, lumbar region, initial encounter for fracture; I48.91 Unspecified atrial fibrillation; I45.10 Unspecified right bundle-branch block; I10 Essential (primary) hypertension; M47.26 Other spondylosis with radiculopathy, lumbar region; M46.46 Discitis, unspecified, lumbar region; M48.061 Spinal stenosis, lumbar region without neurogenic claudication; G47.30 Sleep apnea, unspecified; Z82.49 Family history of ischemic heart disease and other diseases of the circulatory system
CPT/HCPCS: 36415; 36430; 76001; 80048; 81001; 82553; 82805; 84484; 85018; 85025; 85610; 85730; 86850; 86900; 86901; 87070; 87086; 87205; 93005; 93010; 93970; A4216; C1713; C1768; G8978-GP-CJ; G8979-GP-CH; G8987-GO-CL; G8988-GO-CJ; J1100; J2001; J2250; J2270; J2274; J2405; J2704; J3010; J3370; J3490; P9016; P9045; S0020

== ENCOUNTER 2017-08-17 10:20 | Outpatient (CLI) | payer MEDICARE ==
--- NOTE | 2017-08-17 11:07 | RAD ---
2 VIEWS LUMBAR SPINE: Date: 08/17/17 HISTORY: Lumbar spine surgery. COMPARISON: MRI lumbar spine dated 06/17/17. FINDINGS: Two views of the lumbar spine show the patient to be status post posterior fusion of L2 through L4 wi th bilateral pedicle screws. There is compression deformity of the L3 vertebral body. Vertebral mino s demonstrate normal alignment without definite subluxation. No perihardware lucency is identified. L aminectomies appear to have been performed from L2 through L4. IMPRESSION: Postsurgical changes of the lumbar spine as above. POS: ZAKI
== END 2017-08-17 10:21 | disposition home or self-care (01) ==
LOC: TBSIIMAG 10:20
PROVIDERS: ATTEND Neurological Surgery
DX: M54.16 Radiculopathy, lumbar region (principal); M43.16 Spondylolisthesis, lumbar region; Z98.890 Other specified postprocedural states
CPT/HCPCS: 72100

== ENCOUNTER 2017-08-20 08:54 | Outpatient (CLI) | payer MEDICARE ==
--- NOTE | 2017-08-20 10:30 | CT ---
CT CHEST NONCONTRAST: History: Lung nodules. FINDINGS: Prior exams are not available for direct comparison. A 0.3 cm noncalcified nodule is present at the anterior aspect of the right upper lobe. Tiny nonspeci fic nodules are scattered throughout the right upper, middle, and lower lobes. A 0.5 cm noncalcified nodule is present at the lateral aspect of the right lower. A 0.4 cm noncalcified subpleural nodule i s evident in the right middle lobe. A small area of multinodular infiltrate is present at the left an terior lateral lung base and the left posterolateral lung base. Lack of contrast limits evaluation for soft tissues. No bulky adenopathy is visible. There is calcifi cation in the arterial structures. The inferior most images show cysts arising from the cortex of the kidneys. Tiny calcification is present within a nondilated belinda at the superior pole of the right k idney. IMPRESSION: 1. Subcentimeter pleural nodules, bilateral, right greater than left, as detailed above. 2. COPD. 3. Atherosclerosis. 4. Small nonobstructing right renal calculus. POS: ARIELLA
== END 2017-08-20 08:55 | disposition home or self-care (01) ==
LOC: CT 08:54
PROVIDERS: ATTEND Internal Medicine Critical Care Medicine
DX: R91.1 Solitary pulmonary nodule (principal); R05 Cough; R06.00 Dyspnea, unspecified; J84.89 Other specified interstitial pulmonary diseases; J44.9 Chronic obstructive pulmonary disease, unspecified; I70.90 Unspecified atherosclerosis; N20.0 Calculus of kidney
CPT/HCPCS: 71250

== ENCOUNTER 2018-02-19 12:32 | Outpatient (CLI) | payer MEDICARE ==
[2018-02-19 13:03] LABS: Estimated GFR-MDRD - POC Greater than 90
--- NOTE | 2018-02-19 13:59 | MRI ---
MRI LUMBAR SPINE WITH AND WITHOUT IV CONTRAST: Date: 02/19/18 INDICATION: History of lumbar radiculopathy, low back pain extending down left leg for 6 weeks. TECHNIQUE: Multiplanar, multisequence MR images were obtained of the lumbar spine with and without contrast. 16 mL of MultiHance was administered for the examination. Comparison made with prior MRI lumbar spine dated 06/17/17. FINDINGS: There is posterolateral spinal instrumentation spanning L2 through L4. The wedge compression deformit y involving L3 is stable. Advanced disc degenerative disease at L3-4 and L4-5 is similar appearing. T here have been interval laminectomies at L2 and at L3, with improvement of the previously seen centra l canal narrowing. At L5-S1, there is no appreciable central canal or neural foraminal narrowing. At L4-5, there is a broad based bulge that is stable in size to the prior exam. There is mild bilater al neural foraminal narrowing, which is stable. At L3-4, there is a mild residual broad based bulge that is stable. Broad based bulge and facet hyper trophy induces mild bilateral neural foraminal narrowing, right greater than left, which is stable. At the L2-3 level, the loss of disc space height induces at least moderate left and severe right neur al foraminal narrowing, which appears similar to the comparison examination. The details of the neura l foramina are slightly limited due to susceptibility artifact from the adjacent pedicle screws. At L1-2, there is mild broad based bulge without appreciable central canal or neural foraminal narrow ing. This is stable to prior exam. At T12-L1, there is no appreciable central canal or neural foraminal narrowing. Postcontrast images demonstrate no definite abnormal region of enhancement. There are bilateral renal cysts. IMPRESSION: 1. Interval postoperative change with laminectomies at L2 to L3 with improvement in the central nathalie l narrowing seen at L2-3 from the prior exam. There remains moderate left and severe right neural for aminal narrowing at L2-3. 2. Stable mild neural foraminal narrowing at L3-4. 3. Stable disc degenerative disease at L4-5 and L5-S1. 4. Bilateral renal cysts. POS: ZAKI
--- NOTE | 2018-02-19 14:05 | RAD ---
3 VIEWS LUMBAR SPINE: Date: 02/19/18 INDICATION: Radiculopathy. COMPARISON: Prior exam dated 08/17/17. FINDINGS: Posterolateral spinal instrumentation spanning L2-L4 is similar appearing. Wedging of L3 is stable. T here is straightening of the normal lumbar lordosis. No abnormal translational motion is present. No acute fracture is noted. IMPRESSION: 1. No abnormal translational motion. 2. Stable postoperative lumbar spine. POS: ZAKI
== END 2018-02-19 12:33 | disposition home or self-care (01) ==
LOC: SCSMRI 12:32
PROVIDERS: ATTEND Neurological Surgery
DX: M51.17 Intervertebral disc disorders with radiculopathy, lumbosacral region (principal); M51.16 Intervertebral disc disorders with radiculopathy, lumbar region; M48.061 Spinal stenosis, lumbar region without neurogenic claudication; M99.83 Other biomechanical lesions of lumbar region; N28.1 Cyst of kidney, acquired; Z98.890 Other specified postprocedural states
CPT/HCPCS: 72100; 72158; 82565

== ENCOUNTER 2018-03-10 14:28 | Outpatient (CLI) | payer MEDICARE | END 2018-03-10 14:29 | disposition home or self-care (01) | LOC: BICCT 14:28 | PROVIDERS: ATTEND Internal Medicine Critical Care Medicine | DX: J84.89 Other specified interstitial pulmonary diseases (principal); R06.00 Dyspnea, unspecified; R05 Cough; R91.8 Other nonspecific abnormal finding of lung field | CPT/HCPCS: 71250 ==

== ENCOUNTER 2018-07-04 17:22 | Emergency (ER) | payer MEDICARE | END 2018-07-04 18:05 | disposition home or self-care (01) | LOC: SCSER 17:22 | DX: M79.10 Myalgia, unspecified site (principal); Z79.899 Other long term (current) drug therapy; Z79.82 Long term (current) use of aspirin | CPT/HCPCS: 87804; 93005 ==

== ENCOUNTER 2018-08-19 09:10 | Emergency (ER) | payer MEDICARE ==
[2018-08-19 09:45] LABS: #Basophils 0.1 thou/uL (0.0-0.2); #Eosinphils 0.2 thou/uL (0.0-0.7); #Lymphocytes 2.2 thou/uL (1.20-3.40); #Monocytes 0.7 thou/uL (0.11-0.59); #Neutrophils 2.7 thou/uL (1.40-6.50); %Basophils 1.8 % (0.0-1.0); %Eosinophils 2.8 % (0.0-10.0); %Lymphocytes 37.4 % (21.0-51.0); %Monocytes 11.6 % (0.0-10.0); %Neutrophils 46.5 % (42.0-75.0); Hemoglobin 12.9 g/dL (14.0-18.0); Mean Corpuscular HGB CONC 31.7 g/dL (32.0-36.0); Mean Corpuscular Hemoglobin 26.7 pg (27.0-31.0); Mean Corpuscular Volume 84.3 fL (78.0-98.0); Mean Platelet Volume 9.1 fL (7.4-10.4); Platelet Count 214 thou/uL (130-400); RBC Distribution Width 14.4 % (11.5-14.5); Red Blood Cell (RBC) Count 4.84 mill/uL (4.70-6.10); White Blood Cell (WBC) Count 5.8 thou/uL (4.8-10.8)
[2018-08-19 09:55] LABS: ALT (SGPT) 14 U/L (8-55); AST (SGOT) 18 U/L (5-34); Albumin 4.3 g/dL (3.4-4.8); Alkaline Phosphatase 81 U/L (40-150); Anion Gap 13 mmol/L (10-20); BUN (Urea Nitrogen) 14 mg/dL (8.4-25.7); Bilirubin, Total 0.6 mg/dL (0.2-1.2); Calc. Creatinine Clearance 0 mL/min (70-130); Carbon Dioxide 27 mmol/L (23-31); Chloride 104 mmol/L (98-107); Estimated GFR-MDRD 88; Glucose 113 mg/dL (83-110); Magnesium 2.5 mg/dL (1.6-2.6); Protein, Total 6.3 g/dL (5.8-8.1); Sodium 140 mmol/L (136-145)
[2018-08-19] MEDS ORDERED: Meclizine HCl 25 MG TAB ONE (10:05)
--- NOTE | 2018-08-19 10:30 | RAD ---
EXAM: CHEST TWO VIEWS: History: Lightheadedness, dizziness, and weakness. Comparison: 03-10-[address] FINDINGS: Monitor leads overlie the chest. Heart size is within normal limits. No confluent pneumonia, overt ed aisha, or pleural effusion. The nodules described on the prior CT are not visible on the plain film sean dy. IMPRESSION: No significant acute intrathoracic disease. Atherosclerosis of the aorta. Previously noted nodules on prior CT are not demonstrated on this chest x-ray. POS: [facility]
== END 2018-08-19 11:20 | disposition home or self-care (01) ==
LOC: SCSER 09:10
DX: R42 Dizziness and giddiness (principal); I49.9 Cardiac arrhythmia, unspecified; I48.91 Unspecified atrial fibrillation; I10 Essential (primary) hypertension; Z79.899 Other long term (current) drug therapy; Z79.82 Long term (current) use of aspirin
CPT/HCPCS: 71046; 80053; 83735; 85025; 93005; 96360

== ENCOUNTER 2018-09-07 15:26 | Outpatient (CLI) | payer MEDICARE ==
--- NOTE | 2018-09-07 16:47 | CT ---
CT OF THE THORAX WITHOUT IV CONTRAST: 09/07/18 INDICATION: Followup thyroid nodule. COMPARISON: Recent CT dated 03/10/18 and prior examination dated 01/19/17. FINDINGS: The previously seen 8 mm pulmonary nodule within the superior segment of the right lower lobe has dec reased in size, now measuring 4 mm. Previously seen 4.7 mm nodule slightly smaller where it previously measured 5.5 x 5 mm. There is a ne w enlarged nodule is seen within the right upper lobe measures 3.7 mm. Reticulonodularity is seen within the peripheral aspect of the lateral left lower lobe appears relati vely stable. There is some reticulonodularity present within the anterior segment of the right upper lobe as well as portions of the right middle lobe with associated bronchiectasis that appear stable. Reticulonodularity is also seen within the posterior lateral segment of the right lower lobe. There is scattered coronary artery and thoracic aortic calcifications. There are calcified lymph node s seen within the mediastinum in both hilar regions. The visualized upper abdomen demonstrate numerou s exophytic and internal lobular lesions involving both kidneys which may reflect slightly complex cy sts. There is bony hemangiomas suspected within the left T 4 vertebral level. There is diffuse osteop enia. IMPRESSION: 1. Waxing and waning reticulonodularity throughout both lungs is suspicious for a bronchiolitis. This can be seen with atypical infectious process such as TOMAS type infection. There is some mild sca ttered bronchiectasis that is most pronounced in the region of the right middle lobe. There is findin gs of prior granulomatous disease. Would recommend continued CT followup. 2. Multiple renal lesions incompletely characterized on current examination. A renal ultrasound would be helpful for full characterization. Some of these lesions appear slightly hyperdense and may reflect proteinaceous cysts. POS: ZAKI
== END 2018-09-07 15:27 | disposition home or self-care (01) ==
LOC: BICCT 15:26
PROVIDERS: ATTEND Internal Medicine Critical Care Medicine
DX: J84.89 Other specified interstitial pulmonary diseases (principal); R05 Cough; R06.00 Dyspnea, unspecified; R91.8 Other nonspecific abnormal finding of lung field; J47.9 Bronchiectasis, uncomplicated; N28.9 Disorder of kidney and ureter, unspecified
CPT/HCPCS: 71250

== ENCOUNTER 2022-02-20 12:40 | Outpatient (CLI) | payer MEDICARE | END 2022-02-20 12:41 | disposition home or self-care (01) | LOC: LABBT 12:40 | PROVIDERS: ATTEND Family Medicine | DX: Z01.818 Encounter for other preprocedural examination (principal); C61 Malignant neoplasm of prostate; N20.0 Calculus of kidney; N39.0 Urinary tract infection, site not specified; Z20.822 Contact with and (suspected) exposure to COVID-19 | CPT/HCPCS: 87811; 93005; 93010 ==

== ENCOUNTER 2022-02-24 09:36 | Day surgery (SDC) | payer MEDICARE ==
[2022-02-20 11:19] VITALS: BMI 28.7
[2022-02-24] MEDS ORDERED: fentaNYL Citrate/PF 100 MCG/2 ML SYRINGE ONE (15:14)
[2022-02-24] MEDS ORDERED: Iopamidol 15 ML ONE (15:27)
[2022-02-24] MEDS ORDERED: Levofloxacin 500 mg/D5W 100 ml Premix Bag ONE (15:34)
[2022-02-24] MEDS ORDERED: Lidocaine 1% PF 5 ML VIAL ONE (15:39)
[2022-02-24] MEDS ORDERED: Dexamethasone 20 MG/5 ML VIAL ONE (15:39)
[2022-02-24] MEDS ORDERED: PROPOFOL 200 MG/20 ML VIAL ONE (15:39)
[2022-02-24] MEDS ORDERED: Ondansetron PF 4 MG/2 ML Vial ONE (15:39)
[2022-02-24] MEDS ORDERED: B & O ONE (15:56)
== END 2022-02-24 17:55 | disposition home or self-care (01) ==
LOC: SDC 09:36
PROVIDERS: ATTEND Urology
PROC: 0TC38ZZ Extirpation of Matter from Right Kidney Pelvis, Via Natural or Artificial Opening Endoscopic (ICD-10-PCS; principal; 2022-02-24)
PROC: 0T768DZ Dilation of Right Ureter with Intraluminal Device, Via Natural or Artificial Opening Endoscopic (ICD-10-PCS; 2022-02-24)
DX: N20.0 Calculus of kidney (principal); G47.30 Sleep apnea, unspecified; M19.90 Unspecified osteoarthritis, unspecified site; Z85.46 Personal history of malignant neoplasm of prostate; Z79.01 Long term (current) use of anticoagulants; Z79.83 Long term (current) use of bisphosphonates; Z79.899 Other long term (current) drug therapy; Z88.8 Allergy status to other drugs, medicaments and biological substances; Z95.0 Presence of cardiac pacemaker
CPT/HCPCS: 76000; 82365; 88300; C1713; C2617; J1100; J1956; J2405; J2704; Q9967

== ENCOUNTER 2022-11-13 09:40 | Outpatient (CLI) | payer MEDICARE | END 2022-11-13 09:41 | disposition home or self-care (01) | LOC: BICMAMMO 09:40 | PROVIDERS: ATTEND Family Medicine | DX: M85.851 Other specified disorders of bone density and structure, right thigh (principal); M85.852 Other specified disorders of bone density and structure, left thigh | CPT/HCPCS: 77080 ==

== ENCOUNTER 2023-08-13 14:11 | Outpatient (CLI) | payer MEDICARE | END 2023-08-13 14:12 | disposition home or self-care (01) | LOC: BICRAD 14:11 | PROVIDERS: ATTEND Urology | DX: N20.0 Calculus of kidney (principal); R19.8 Other specified symptoms and signs involving the digestive system and abdomen | CPT/HCPCS: 74018 ==